=== PATIENT | male | born 1985 | race Caucasian/White ===

== ENCOUNTER 2019-03-06 13:54 | Emergency (ER) | payer SELFPAY ==
[2019-03-06 14:25] VITALS: TEMP 100.5; BMI 33.4
[2019-03-06] MEDS ORDERED: ACETAMINOPHEN 1000 MG/100 ML VIAL (NON FORMULARY) IVPB ONE (15:10)
[2019-03-06] MEDS ORDERED: SODIUM CHLORIDE 1,000 ML IV STA (15:55)
--- NOTE | 2019-03-06 15:55 | PDOC ---
*Physical Exam - Vital Signs Last Vital Signs Temp Pulse Resp BP Pulse Ox 100.5 F H 128 H 16 159/88 100 03/06/19 14:18 03/06/19 14:18 03/06/19 14:18 03/06/19 14:18 03/06/19 14:18 Medical Decision Making - Medical Decision Making 03/06/19 15:44 Patient's vitals and triage summary reviewed. Patient placed for labs, lactic acid IV fluids and IV Tylenol.
--- NOTE | 2019-03-06 15:55 | PDOC ---
History of Present Illness - General Chief Complaint: Pain Stated Complaint: Abdominal pain Time Seen by Provider: 03/06/19 15:54 History Source: Patient Exam Limitations: No Limitations Past History - Past Medical History Allergies/Adverse Reactions: Allergies Allergy/AdvReac Type Severity Reaction Status Date / Time shrimp Allergy Verified 03/06/19 14:26 COPD: No GI Disorders: Yes (Diverticulitis) - Psycho Social/Smoking Cessation Hx Smoking History: Current every day smoker Have you smoked in the past 12 months: Yes Number of Cigarettes Smoked Daily: 3 Information on smoking cessation initiated: No Hx Alcohol Use: No Drug/Substance Use Hx: No *Physical Exam - Vital Signs Last Vital Signs Temp Pulse Resp BP Pulse Ox 100.5 F H 128 H 16 159/88 100 03/06/19 14:18 03/06/19 14:18 03/06/19 14:18 03/06/19 14:18 03/06/19 14:18
[2019-03-06] MEDS ORDERED: SODIUM CHLORIDE 2,994 ML IV ONE (15:56)
[2019-03-06] MEDS ORDERED: VANCOMYCIN 1 GM in D5W (PRE-DOCKED) 1,000 MG/250 ML IVPB ONE (16:13)
[2019-03-06] MEDS ORDERED: PIPERACILLIN/TAZOB 4.5 GM 4.5 GM in DEXTROSE 5%-WATER 100 ML IVPB ONE (16:13)
--- NOTE | 2019-03-06 16:20 | PDOC ---
History of Present Illness - General Chief Complaint: Pain Stated Complaint: Abdominal pain Time Seen by Provider: 03/06/19 15:54 History Source: Patient Exam Limitations: No Limitations - History of Present Illness Initial Comments: 03/06/19 16:15 Reji Alcantar is a 33yM w hx diverticulitis, scoliosis, degenerative disc disease presenting w LLQ pain. Progressively worsening LLQ pain for past week. Did not take any meds for pain. Went to [facility] summer 2017 for similar LLQ pain, diagnosed as diverticulitis, dc w metronidazole and ciprofloxacin. Did not f/u w PCP lack of insurance. Denies past AB surgery or trauma to area. Denies alcohol use. Denies subjective fevers/chills, nausea/vomiting, cough, chest pain, urinary/bowel symptoms. Past History - Past Medical History Allergies/Adverse Reactions: Allergies Allergy/AdvReac Type Severity Reaction Status Date / Time shrimp Allergy Verified 03/06/19 14:26 Home Medications: Ambulatory Orders Levofloxacin [Levaquin] 750 mg PO DAILY 10 Days #10 tablet 03/06/19 Metronidazole 500 mg PO TID 10 Days #30 tablet 03/06/19 COPD: No GI Disorders: Yes (Diverticulitis) - Surgical History Abdominal Surgery: No - Psycho Social/Smoking Cessation Hx Smoking History: Current every day smoker Have you smoked in the past 12 months: Yes Number of Cigarettes Smoked Daily: 3 Information on smoking cessation initiated: No Hx Alcohol Use: No Drug/Substance Use Hx: No Substance Use Type: None Review of Systems - Review of Systems Constitutional: No: Chills, Fever HEENTM: No: Eye Pain, Nose Pain, Nose Congestion, Mouth Pain Respiratory: No: Cough, Shortness of Breath Cardiac (ROS): No: Chest Pain, Palpitations, Syncope ABD/GI: No: Abdominal Distended, Constipated, Diarrhea, Nausea, Vomiting : No: Burning, Dysuria, Discharge, Flank Pain, Hematuria, Incontinence Musculoskeletal: No: Back Pain, Joint Pain, Muscle Weakness Integumentary: No: Bruising, Flushing, Lesions Neurological: No: Headache, Seizure, Tingling, Tremors Psychiatric: No: Anxiety, Depression, Stressors Endocrine: No: Excessive Sweating, Flushing, Intolerance to Cold, Intolerance to Heat Hematologic/Lymphatic: No: Anemia, Blood Clots *Physical Exam - Vital Signs Last Vital Signs Temp Pulse Resp BP Pulse Ox 100.5 F H 128 H 16 159/88 100 03/06/19 14:18 03/06/19 14:18 03/06/19 14:18 03/06/19 14:18 03/06/19 14:18 - Physical Exam General Appearance: Yes: Nourished, Appropriately Dressed, Mild Distress HEENT: positive: EOMI, DAVY, Normal Voice, Hearing Grossly Normal. negative: Scleral Icterus (R), Scleral Icterus (L), Rhinorrhea, Sinus Tenderness Respiratory/Chest: positive: Lungs Clear, Normal Breath Sounds. negative: Chest Tender, Respiratory Distress, Crackles, Rales, Rhonchi, Stridor, Wheezing Cardiovascular: positive: Regular Rhythm, Regular Rate, S1, S2. negative: Edema , Murmur Gastrointestinal/Abdominal: positive: Normal Bowel Sounds, Tender (moderate tender LLQ), Flat, Soft. negative: Organomegaly, Distended, Guarding, Rebound, Hernia, Mass Male Genitalia: positive: normal genitalia Musculoskeletal: positive: Normal Inspection. negative: CVA Tenderness (R), CVA Tenderness (L), Decreased Range of Motion, Muscle Spasm, Vertebral Tenderness Integumentary: positive: Normal Color, Dry. negative: Jaundice, Clammy, Diaphoresis, Hives, Petechiae, Rash, Swelling, Ecchymosis, Bruising Neurologic: positive: clipping marker II-XII NML intact, Fully Oriented, Alert, Normal Response, Motor Strength 5/5, Responsive. negative: Sensory Deficit, Confused, Disoriented ED Treatment Course - LABORATORY CBC & Chemistry Diagram: 03/06/19 16:12 03/06/19 16:12 - RADIOLOGY Radiology Studies Ordered: Category Date Time Status ABDOMEN & PELVIS CT WITH CONTR [CT] Stat CT Scan 03/06/19 16:13 Ordered Medical Decision Making - Medical Decision Making 03/06/19 16:20 CBC CMP lactate lipase blood/urine cx UA 30mg/kg NS, vanc, zosyn, tylenol CT A/P w/o contrast (pt reported hives - iodine allergy) normal CMP, UA, lipase, WBC 20 --- Reji Alcantar is a 33yM w hx diverticulitis, scoliosis, degenerative disc disease presenting w 1 week LLQ pain d/t distal descending/sigmoid diverticulitis without fluid collection or abscess. No signs of SBO/mass/normal appendix. Low concern for UTI (clean UA) vs pancreatitis (normal lipase). 7mm disc osteophyte complex at L4-5 resulting in mild spinal canal stenosis also found on CT. Given tylenol for pain, 30mg/kg NS, vanc, zosyn, levaquin and metronidazole 1st dose. DC w metronidazole, levaquin x10d, PCP/GI/ortho f/u. Discharge - Discharge Information Problems reviewed: Yes Clinical Impression/Diagnosis: Diverticulitis, Spinal stenosis at L4-L5 level Condition: Improved Disposition: HOME - Admission No - Additional Discharge Information Prescriptions: Levofloxacin [Levaquin] 750 mg PO DAILY 10 Days #10 tablet Metronidazole 500 mg PO TID 10 Days #30 tablet - Follow up/Referral Referrals: Oscar Adams MD [Staff Physician] - Lux Bergman DO [Staff Physician] - Alana Swain DO [Staff Physician] - - Patient Discharge Instructions Patient Printed Discharge Instructions: DI for Diverticulitis, DI for Spinal Stenosis Additional Instructions: You were seen for abdominal pain. Your CT showed diverticulitis and spinal stenosis. You were given antibiotics and medication for your pain. Please follow up with the referred primary care (Dr Adams), orthopedics (Dr Isidro) and GI (Dr Swian) doctors. Take the prescribed metronidazole and levaquin antibiotics as directed for the next 10 days. Come back to the ED if you have worsening pain, vomiting, or trouble urinating or bowel movements. - Post Discharge Activity
--- NOTE | 2019-03-06 16:38 | PDOC ---
Documentation entered by Honey Ibarra SCRIBE, acting as scribe for Ernesto Carvalho MD. Ernesto Carvalho MD: This documentation has been prepared by the Fred glez Brenda, SCRIBE, under my direction and personally reviewed by me in its entirety. I confirm that the documentation accurately reflects all work, treatment, procedures, and medical decision making performed by me. Attending Attestation - Resident Resident Name: WesleyHoward - ED Attending Attestation I have performed the following: I have examined & evaluated the patient, The case was reviewed & discussed with the resident, I agree w/resident's findings & plan, Exceptions are as noted - HPI HPI: 03/06/19 16:30 The patient is a 33 year old male, with a significant PMH of diverticulitis, scoliosis and degenerative disc disease who presents to the emergency department with 1 week of progressively worsening left lower quadrant abdominal pain. Patient reports not taking any medication for relief. Patient reports that he went to [facility] in 2018, for the same symptoms and was diagnosed with diverticulitis, he admits to not following up due to insurance. The patient denies chest pain, shortness of breath, headache and dizziness. Denies fever, chills, nausea, vomiting, diarrhea and constipation. Denies dysuria, frequency, urgency and hematuria. Denies any other symtpoms. Allergies: NKA Past surgical history: None PCP: None - Physicial Exam PE: 03/06/19 16:24 Vitals: Triage vital signs reviewed General Appearance: No acute distress, well nourished, well developed Head: Atraumatic Cardiac: Regular rate and rhythm, no murmurs, no rubs, no gallops Lungs: Clear to auscultation bilateral, good air movement bilaterally Abdomen: Soft, nondistended, normal bowel sounds, left lower quadrant tenderness to palpation Extremities: Full range of motion to all extremities, no cyanosis, clubbing, or edema Skin: Warm and dry, no rashes or lesions, no rash, no petechiae Psych: Normal mood, normal affect - Medical Decision Making 03/06/19 17:02 33 years old past medical history significant for diverticulitis presents to the emergency department fever left lower quadrant pain on examination We will check labs hydrate IV Tylenol blood cultures sepsis protocol initiated Will CT abdomen pelvis to rule out diverticulitis Dr. Ann to follow patient and reassess.
[2019-03-06] MEDS ORDERED: PIPERACILLIN/TAZOB 4.5 GM 4.5 GM/100 ML BAG IVPB ONE (16:40)
[2019-03-06] MEDS ORDERED: ACETAMINOPHEN INJECTION 100 ML IVPB ONE (16:40)
[2019-03-06 16:43] LABS: BASO % 0.6 % (0-2.0); EOS % 1.2 % (0-4.5); HEMATOCRIT 47.3 % (35.4-49); HEMOGLOBIN 15.6 GM/dL (11.7-16.9); LYMPH % 12.6 % (8-40); MCH 28.9 pg (25.7-33.7); MEAN CELL VOLUME 87.6 fl (80-96); MEAN PLT VOLUME 9.1 fl (7.5-11.1); MONO % 12.9 % (3.8-10.2); NEUT % 72.7 % (42.8-82.8); PLATELET COUNT 292 K/MM3 (134-434); RDW 13.9 % (11.9-15.9); WHITE BLOOD COUNT 20.9 K/mm3 (4.0-10.0)
[2019-03-06 16:49] LABS: EPI CELLS 0.6 /HPF (0-5/HPF); HYALINE CASTS 1 /lpf (0-8); URINE APPEARANCE CLEAR; URINE BACTERIA 0.3 /hpf (NEGATIVE); URINE BILIRUBIN NEGATIVE (NEGATIVE); URINE COLOR YELLOW; URINE GLUCOSE (UA) NEGATIVE (NEGATIVE); URINE KETONE NEGATIVE (NEGATIVE); URINE LEUK ESTERASE NEGATIVE (NEGATIVE); URINE NITRITE NEGATIVE (NEGATIVE); URINE PROTEIN 2+ (NEGATIVE); URINE RBC 25 /hpf (0-4); URINE WBC 1 /hpf (0-5)
[2019-03-06 17:11] LABS: ALBUMIN 4.2 g/dl (3.4-5.0); BLOOD UREA NITROGEN 12.5 mg/dL (7-18); CALCIUM 9.6 mg/dL (8.5-10.1); POTASSIUM 4.2 mmol/L (3.5-5.1); TOT PROT 8.4 g/dl (6.4-8.2)
[2019-03-06 17:38] LABS: PLATELET ESTIMATE ADEQUATE
[2019-03-06] MEDS ORDERED: VANCOMYCIN 1 GRAM (PRE-DOCKED) 1,000 MG/250 ML BAG IVPB ONE (17:43)
[2019-03-06] MEDS ORDERED: metroNIDAZOLE 250 MG TABLET PO ONE (19:50)
[2019-03-06 20:13] VITALS: BP 105/76; PULSE 88
[2019-03-06] MEDS ORDERED: metroNIDAZOLE 250 MG TABLET ONE (20:17)
[2019-03-06] MEDS ORDERED: levoFLOXacin 750 MG TABLET PO ONE (20:33)
[2019-03-07] MEDS ORDERED: levoFLOXacin 750 MG TABLET PO ONE (19:51)
== END 2019-03-06 20:35 | disposition home or self-care (01) ==
LOC: JER 13:54
PROC: 3E033NZ Introduction of Analgesics, Hypnotics, Sedatives into Peripheral Vein, Percutaneous Approach (ICD-10-PCS; principal; 2019-03-06)
PROC: 3E03329 Introduction of Other Anti-infective into Peripheral Vein, Percutaneous Approach (ICD-10-PCS; 2019-03-06)
PROC: 3E0337Z Introduction of Electrolytic and Water Balance Substance into Peripheral Vein, Percutaneous Approach (ICD-10-PCS; 2019-03-06)
DX: M48.00 Spinal stenosis, site unspecified (principal); K57.92 Diverticulitis of intestine, part unspecified, without perforation or abscess without bleeding
CPT/HCPCS: 36415; 74176-TC; 80053; 81003; 83605; 83690; 85025; 87040; 87086; 99283-25; J0131; J7030

== ENCOUNTER 2022-02-26 13:12 | Emergency (ER) | payer OTHER ==
[2022-02-26 13:43] VITALS: BP 118/76; PULSE 90; RESP 18; TEMP 98.5; BMI 33.4
[2022-02-26] MEDS ORDERED: NAPROXEN 500 MG TABLET PO ONE (14:59)
[2022-02-26] MEDS ORDERED: NAPROXEN 500 MG TABLET ONE (15:02)
== END 2022-02-26 16:18 | disposition home or self-care (01) ==
LOC: JERFT 13:12
DX: S99.911A Unspecified injury of right ankle, initial encounter (principal); W11.XXXA Fall on and from ladder, initial encounter
CPT/HCPCS: 73610-TC-RT-FY; 73630-TC-RT-FY; 99283-25